=== PATIENT | male | born 1940 | race Caucasian/White ===

== ENCOUNTER 2018-04-03 08:17 | Inpatient (IN) | payer MEDICARE, BC ==
[2018-04-03] MEDS ORDERED: Ondansetron ODT 4 MG TAB ONE (08:45)
[2018-04-03] MEDS ORDERED: Piperacillin/Tazobactam 4.5 GM in Sodium Chloride 0.9% 100 ML IVPB SCH (09:00)
[2018-04-03 09:15] LABS: #Lymphocytes 0.2 thou/uL (1.20-3.40); #Monocytes 0.1 thou/uL (0.11-0.59); #Neutrophils 5.6 thou/uL (1.40-6.50); %Basophils 0.8 % (0.0-1.0); %Eosinophils 0.6 % (0.0-10.0); %Lymphocytes 3.5 % (21.0-51.0); %Monocytes 2.3 % (0.0-10.0); %Neutrophils 92.8 % (42.0-75.0); Hemoglobin 16.1 g/dL (14.0-18.0); Mean Corpuscular HGB CONC 33.6 g/dL (32.0-36.0); Mean Corpuscular Hemoglobin 32.2 pg (27.0-31.0); Mean Corpuscular Volume 95.8 fl (80.0-94.0); Mean Platelet Volume 6.6 fL (7.4-10.4); Platelet Count 214 thou/uL (130-400); RBC Distribution Width 12.3 % (11.5-14.5); Red Blood Cell (RBC) Count 4.99 mill/uL (4.70-6.10)
--- NOTE | 2018-04-03 09:17 | RAD ---
PORTABLE CHEST ONE VIEW: Date: 04-03-18 Time: 8:40 a.m. History: Fever, hypoxia. FINDINGS/IMPRESSION: Comparison is made with exam of 04-26-17. Changes of median sternotomy are again seen. The heart size is normal. Prominent interstitial marking s are seen in the lower lung aceves which may be due to worsening of chronic disease or superimposed acute process. No pneumothoraces or pleural effusions are seen. POS: OFF
[2018-04-03 09:39] LABS: ALT (SGPT) 15 U/L (8-55); AST (SGOT) 18 U/L (5-34); Albumin 4.2 g/dL (3.4-4.8); Alkaline Phosphatase 77 U/L (40-150); Anion Gap 14 mmol/L (10-20); BUN (Urea Nitrogen) 15 mg/dL (8.4-25.7); Bilirubin, Total 1.8 mg/dL (0.2-1.2); CK (CPK) 75 U/L (30-200); Calc. Creatinine Clearance 0 mL/min (70-130); Calcium 9.4 mg/dL (7.8-10.44); Carbon Dioxide 25 mmol/L (23-31); Chloride 106 mmol/L (98-107); Estimated GFR-MDRD 70; Globulin 2.6 g/dL (2.4-3.5); Glucose 124 mg/dL (83-110); Lipase 26 U/L (8-78); Magnesium 2.1 mg/dL (1.6-2.6); Potassium 3.3 mmol/L (3.5-5.1); Protein, Total 6.8 g/dL (5.8-8.1); Sodium 142 mmol/L (136-145)
[2018-04-03 09:43] LABS: Troponin I Less than 0.010 ng/mL (< 0.028)
[2018-04-03 10:19] LABS: Bilirubin Negative (Negative); Blood, Urine Small (Negative); Clarity CLEAR (Clear); Glucose, Urine (Dipstick) Negative (Negative); Leukocyte Negative (Negative); Nitrite Negative (Negative); Protein, Urine (Dipstick) 100 mg/dL (Neg-Trace); Specific Gravity, Urine 1.017 (1.002-1.036); Urobilinogen 0.2 mg/dL (0.2-1.0)
[2018-04-03 10:21] LABS: Bacteria/HPF None Seen HPF (None Seen); Hyaline Casts/LPF 0-3 HYALINE CAST LPF (0-3 Hyaline); Pathc Cast-AUWi Flag 0.14 (0-2.49); Squamous Epithelial 0-3 HPF (0-3); WBC/HPF 0-3 HPF (0-3)
[2018-04-03 10:38] LABS: Renal Epithelial 0-3 HPF (0-3); Transitional Epithelial 0-3 HPF (0-3)
--- NOTE | 2018-04-03 11:53 | CT ---
CT ABDOMEN AND PELVIS WITH CONTRAST: HISTORY: Abdominal pain with fever and vomiting. COMPARISON: 10/09/2013 TECHNIQUE: Multiple contiguous axial images were obtained in a CT of the abdomen and pelvis with contrast. Mendel nal reformats were performed. FINDINGS: There are hypodensities in the right kidney, measuring up to 3.2 cm in size, which represent cysts. The gallbladder has been removed. There is air in the central biliary tree, which may be secondary t o prior sphincterotomy at the ampulla of Vater. There appears to be a duodenal diverticulum, measuri ng 3 cm in size. No focal liver lesions are seen. The left kidney, adrenal glands, spleen, and pancreas are unremarka ble. No free air, free fluid, or stranding changes are seen in the abdomen or pelvis. The large and small bowel are unremarkable. The appendix is normal. No abdominal or pelvic lymphade nopathy is seen. Atherosclerotic calcifications are seen in the aorta. Degenerative changes are seen in the spine. Atelectasis is seen in the lung bases. There are also m ultifocal air space opacities in the lung bases, which could represent infiltrates. The abdominal wa ll soft tissues are unremarkable. IMPRESSION: 1. No evidence of acute intraabdominal/pelvic abnormality. 2. Duodenal diverticulum. 3. Right renal cyst. 4. Multifocal infiltrates in the lungs. POS: [facility]
[2018-04-03] MEDS ORDERED: Iopamidol 370 76% 100 ML VIAL ONE (12:10)
[2018-04-03] MEDS ORDERED: Vancomycin HCl 1.25 GM in Sodium Chloride 0.9% 250 ML 250 ML IVPB SCH (12:15)
[2018-04-03 13:26] LABS: Lactic Acid 1.3 mmol/L (0.5-2.2)
[2018-04-03] MEDS ORDERED: Ramipril 5 MG CAP PO PRN (14:28)
[2018-04-03] MEDS ORDERED: predniSONE 1 MG TAB PO SCH (17:00)
--- NOTE | 2018-04-03 17:57 | HP ---
DATE OF ADMISSION: 04/03/2018 CHIEF COMPLAINT: Shortness of breath and cough. HISTORY OF PRESENT ILLNESS: The patient is a 77-year-old white male, who presented to the ER from the [facility] with shortness of breath and fever of 102. The patient initially came with abdominal pain with se lukasz vomiting, so he had a CT of the abdomen, which was unremarkable in the ER, but had elevated lact ic acid of 2.5 most likely from dehydration or possible sepsis. Chest x-ray was ordered. The patien t had evidence of right lung pneumonia. He was mildly hypoxic on 2 liters of nasal cannula, but his orientation was good. The patient has a poor hearing in both ears and history of conduction deafness . The patient denied having any sick contacts, but for the past few days he has been having some hunter al allergies and was on Flonase. The patient denied having any chest pain. Denied having any headac he or dizziness. He lives with his , otherwise. He has a known history of coronary artery disea se with a CABG many years ago and with stent in 2016. The patient has known history of type 2 diabet es mellitus on glipizide. PAST MEDICAL HISTORY: 1. Hypertension. 2. Myocardial infarction. 3. Severe coronary artery disease with CABG x5 and stent x1. 4. Severe hearing loss. PAST SURGICAL HISTORY: Significant for: 1. CABG. 2. Stents in 2016. ALLERGIES: No known drug allergies. SOCIAL HISTORY: The patient is a nonsmoker, no history of alcohol, no history of illicit drug use. FAMILY HISTORY: No significant family history of coronary artery disease. HOME MEDICATIONS: 1. Aspirin 81 mg daily. 2. Calcium. 3. Plavix 75 mg daily. 4. Ezetimibe 10 mg p.o. daily. 5. Finasteride. 6. Fish oil. 7. Magnesium oxide. 8. Omeprazole. 9. Polyethylene glycol 17 grams p.o. daily. 10. Prednisolone 1 gram p.o. in the morning, 2 grams p.o. in the evening. 11. Ramipril 5 mg p.o. daily. REVIEW OF SYSTEMS: All 12 systems are reviewed with the patient thoroughly and found to be negative at this time except the ones described in the HPI. Constitutional: Weight loss or gain, sense of well-being, ability to conduct usual activities, exerc ise tolerance. Skin/Breast: Rash, itching, changes in hair growth or loss, nail changes, breast lumps, tenderness, swelling, nipple discharge. Eyes: Vision, double vision, tearing, blind spots, pain. ENT/Mouth: Headaches (location, time of onset, duration, precipitating factors), vertigo, lightheade dness, injury. Vision, double vision, tearing, blind spots, pain, nose bleeding, colds, obstruction, discharge, dental difficulties, gingival bleeding, dentures, neck stiffness, pain, tenderness, johnathon s in thyroid or other areas. Cardiovascular: Precordial pain, substernal distress, palpitations, syncope, dyspnea on exertion, or thopnea, nocturnal paroxysmal dyspnea, edema, cyanosis, hypertension, heart murmurs, varicosities, ph lebitis, claudication. Respiratory: Pain, shortness of breath, wheezing, stridor, cough, hemoptysis, fever or night sweats. Gastrointestinal: Poor appetite, dysphagia, indigestion, abdominal pain, heartburn, eructation, naus ea, vomiting, hematemesis, jaundice, constipation, or diarrhea, abnormal stools (florentino-colored, tarry, bloody, greasy, foul smelling), flatulence, hemorrhoids, recent changes in bowel habits. Genitourinary: Urgency, frequency, dysuria, nocturia, hematuria, polyuria, oliguria, unusual (or rachid nge in) color of urine, stones, hesitancy, change in size of stream, dribbling, acute retention or in continence, libido, potency. Musculoskeletal: Pain, swelling, redness or heat of muscles or joints, limitation, of motion, muscul ar weakness, atrophy, cramps. Neurologic/Psychiatric: Convulsions, paralyses, tremor, incoordination, paresthesias, difficulties w ith memory of speech, sensory or motor disturbances, or muscular coordination (ataxia, tremor), emoti onal problems, anxiety, depression, previous psychiatric care, unusual perceptions, hallucinations. Allergy/Immunologic: Skin rash, anemia, bleeding tendency, polydipsia, polyuria, intolerance to heat or cold. PHYSICAL EXAMINATION: VITAL SIGNS: Blood pressure was 133/80, heart rate is 88, respiratory rate is 18, saturation is 94% on 2 liters. GENERAL: The patient is seen lying in the bed supine, does not appear to be in acute distress. He i s alert and oriented. HEENT: Atraumatic, normocephalic, PERRLA. Extraocular movements were intact. Oral mucosa is pink a nd moist. Has poor hearing in both ears. NECK: No thyromegaly. No lymphadenopathy was noted. LUNGS: Bilateral air entry was equal. Mild wheezing was noted bilaterally. No crackles were heard. No signs of any acute respiratory distress was noted. CARDIOVASCULAR: S1, S2 normal. No murmurs, rubs or gallops. ABDOMEN: Nondistended, nontender, no guarding, no rebound tenderness. Bowel sounds were normal. MUSCULOSKELETAL: No calf tenderness. No pedal edema. No joint tenderness, no joint swelling. SKIN: No cyanosis, no erythema, no rash, no pallor. CENTRAL NERVOUS SYSTEM: Cranial nerve examination II-XII intact. No focal deficits were noted. PSYCHIATRIC: No suicidal ideation, no signs of tom. No signs of depression was noted. LABORATORY DATA: WBC is 6.9, hemoglobin is 16.1, hematocrit is 47.1. Sodium 142, potassium 3.3, chl oride 106, bicarbonate 25, creatinine 1.04. Blood sugar is 125. Lactic acid 2.5, repeat lactic acid 1.3. BNP 151. IMAGING: Chest x-ray was done showing evidence of interstitial markings in the lower lung aceves, mo re in the right than the left. Chest x-ray report has been reviewed and also chest x-ray has been re viewed by me. ASSESSMENT: 1. Acute hypoxic respiratory failure. 2. Acute right lung pneumonia. 3. Coronary artery disease, status post stents. 4. History of coronary artery bypass graft. 5. History of hypertension. 6. History of hyperlipidemia. 7. Moderate dehydration. PLAN: Plan is to closely monitor this patient. Continue the patient with nasal cannula oxygen at th is time and continue with nebulizer treatments as needed. We will start the patient on IV antibiotic s with cefepime and levofloxacin to cover Pseudomonas and any healthcare associated infections. The patient due to multiple comorbidities, need to be closely monitored. The patient has history of coronary artery disease. The patient had a recent stent a year ago. We w ill continue the patient on Plavix and aspirin and also on the beta-romi. The patient has history of hypertension. We will restart the patient's home medications. Blood pres sures are well controlled currently. The patient has moderate dehydration, likely from pneumonia. We will start the patient on normal tera ine at 75 an hour for improving hydration. DVT prophylaxis. Lovenox 40 mg subcutaneously daily. I spent 75 minutes with this patient.
[2018-04-03 19:14] VITALS: BMI 21.2
[2018-04-03] MEDS ORDERED: HYDROcodone/Acetaminophen 5/325 mg Tablet PO PRN (19:37)
[2018-04-03] MEDS: Acetaminophen 325 MG TAB PO PRN (20:45)
[2018-04-03] MEDS ORDERED: Fluticasone Propionate Nasal Spray 16 gm Bottle NASAL SCH (21:00)
[2018-04-03] MEDS: Sodium Chloride 0.9% 1,000 ML IV SCH (21:55)
[2018-04-03] MEDS: Docusate 100 MG CAP PO SCH (21:56)
[2018-04-03] MEDS: Cefepime 2 GM in Sodium Chloride 0.9% 100 ML IVPB SCH (21:56)
[2018-04-04] MEDS: Acetaminophen 325 MG TAB PO PRN ×2 (04:13→20:49)
[2018-04-04 06:07] LABS: Anion Gap 10 mmol/L (10-20); BUN (Urea Nitrogen) 15 mg/dL (8.4-25.7); Calc. Creatinine Clearance 79 mL/min (70-130); Calcium 8.1 mg/dL (7.8-10.44); Carbon Dioxide 22 mmol/L (23-31); Chloride 111 mmol/L (98-107); Estimated GFR-MDRD 90; Glucose 97 mg/dL (83-110); Potassium 3.4 mmol/L (3.5-5.1); Sodium 140 mmol/L (136-145)
[2018-04-04 06:54] LABS: Band 5 % (5-11); Hemoglobin 12.4 g/dL (14.0-18.0); Lymphocytes 20 % (21-51); MDiff Complete? YES; Mean Corpuscular HGB CONC 33.2 g/dL (32.0-36.0); Mean Corpuscular Hemoglobin 31.8 pg (27.0-31.0); Mean Corpuscular Volume 95.8 fl (80.0-94.0); Mean Platelet Volume 6.5 fL (7.4-10.4); Monocytes 3 % (0-10); Neutrophil 70 % (42-75); PLT Morphology Comment Appears Adequate; Platelet Count 162 thou/uL (130-400); RBC Distribution Width 12.2 % (11.5-14.5); Reactive Lymphocytes 2 % (0-10); Red Blood Cell (RBC) Count 3.92 mill/uL (4.70-6.10); White Blood Cell (WBC) Count 5.7 thou/uL (4.8-10.8)
[2018-04-04] MEDS ORDERED: predniSONE 1 MG TAB PO SCH (08:00)
[2018-04-04] MEDS ORDERED: Fish Oil 1,000 MG CAP PO SCH (09:00)
[2018-04-04] MEDS ORDERED: Polyethylene Glycol 3350 17 GM Packet PO SCH (09:00)
[2018-04-04] MEDS ORDERED: Ezetimibe 10 MG TAB PO SCH (09:00)
[2018-04-04] MEDS ORDERED: Multivitamin W/ Minerals 1 TAB PO SCH (09:00)
[2018-04-04] MEDS ORDERED: Finasteride 5 MG TAB PO SCH (09:00)
[2018-04-04] MEDS ORDERED: Bupropion 150 MG XL TAB PO SCH (09:00)
[2018-04-04] MEDS ORDERED: Magnesium Oxide 400 MG TAB PO SCH (09:00)
[2018-04-04] MEDS ORDERED: Clopidogrel Bisulfate 75 MG TAB PO SCH (09:00)
[2018-04-04] MEDS ORDERED: Calcium Polycarbophil 625 MG TAB PO SCH (09:00)
[2018-04-04] MEDS: Enoxaparin Sodium 40 MG/0.4 ML SYRINGE SC SCH (09:54)
[2018-04-04] MEDS: Docusate 100 MG CAP PO SCH ×2 (09:54→20:49)
[2018-04-04] MEDS: Cefepime 2 GM in Sodium Chloride 0.9% 100 ML IVPB SCH ×2 (09:55→20:49)
[2018-04-04] MEDS: Sodium Chloride 0.9% 1,000 ML IV SCH (12:39)
--- NOTE | 2018-04-04 12:45 | PQF ---
CLINICAL DOCUMENTATION IMPROVEMENT CLARIFICATION FORM: ICD-10 Updated PLEASE DO AN ADDENDUM TO THE PROGRESS NOTE WITH ANY DOCUMENTATION UPDATES OR ADDITIONS AND CARRY THROUGH TO DC SUMMARY. THANK YOU. DATE: 04/04/18 ATTN: DR. JACOB Please exercise your independent, professional judgment in responding to the clarification form. Clinical indicators are provided on the bottom of this form for your review Please check appropriate box(s) to clarify if the following diagnosis has been ruled in or ruled out: SEPSIS [ x ] Ruled in diagnosis [ x ] Continue to treat [ ] Resolved [ ] Ruled out diagnosis [ ] Cannot rule out diagnosis [ ] Other diagnosis [ ] Unable to determine In addition, please specify: Present on Admission (POA): [x ] Yes [ ] No [ ] Unable to determine For continuity of documentation, please document condition throughout progress notes and discharge summary. Thank You. CLINICAL INDICATORS - SIGNS / SYMPTOMS / LABS H&P 04/03: "...ELEVATED LACTIC ACID OF 2.5 MOST LIKELY FROM DEHYDRATION OR POSSIBLE SEPSIS." PULSE 106 RISKS: PNEUMONIA TREATMENT: IV FLUIDS (ER) IV VANCOMYCIN (ER) IV ZOSYN (ER) IV MAXIPIME (04/03-PRESENT) IV LEVAQUIN BLOOD AND URINE CULTURES CARDIAC MONITORING (This form is maintained as a part of the permanent medical record) 2014 [employer]. All Rights Reserved STEWART [email or web address] Office: [phone] [place]
--- NOTE | 2018-04-04 15:52 | PDOC.PN ---
- Subjective Encounter Start Date: 04/04/18 Encounter Start Time: 11:00 Patient is seen today, alert and oriented. He continuously have nausea and abdominal discomfort. He has increased Sputum production. - Objective Resuscitation Status: Resuscitation Status FULL:Full Resuscitation MAR Reviewed: Yes Vital Signs & Weight: Vital Signs (12 hours) Temp Pulse Pulse Pulse Resp BP BP 04/04/18 12:00 97.9 F 75 17 04/04/18 09:00 74 69 123/64 113/62 04/04/18 08:00 97.9 F 65 16 04/04/18 07:41 97.9 F 65 16 04/04/18 03:58 99.1 F 79 16 BP Pulse Ox Pulse Ox 04/04/18 12:00 126/66 95 04/04/18 09:00 93 L 04/04/18 08:00 04/04/18 07:41 114/68 100 04/04/18 03:58 103/56 L 95 Weight Admit Weight 161 lb Weight 161 lb I&O: 04/03/18 04/04/18 04/05/18 06:59 06:59 06:59 Intake Total 1124 Balance 1124 Result Diagrams: 04/04/18 05:45 04/04/18 05:45 Additional Labs: Accuchecks 04/04/18 04/04/18 12:21 06:46 POC Glucose 108 96 Radiology Reviewed by me: Yes Phys Exam - Physical Examination HEENT: PERRLA, moist MMs Neck: no nodes, no JVD Respiratory: no wheezing, no rales Cardiovascular: RRR, no significant murmur Gastrointestinal: soft, non-tender Musculoskeletal: no edema, pulses present Neurological: non-focal, normal sensation Lymphatic: no nodes Dx/Plan (1) Pneumonia involving right lung Code(s): J18.9 - PNEUMONIA, UNSPECIFIED ORGANISM Status: Acute Comment: Will continue on broad spectrum today and monitor with Duo nebs and Alb nebs. Will get Sputum cultures. (2) Acute respiratory failure with hypoxia Code(s): J96.01 - ACUTE RESPIRATORY FAILURE WITH HYPOXIA Status: Acute Comment: Improving, will continue to wean him off oxygem. (3) Dementia Code(s): F03.90 - UNSPECIFIED DEMENTIA WITHOUT BEHAVIORAL DISTURBANCE Status: Acute Comment: PT is on Arcept and Donepzil, both same medications , which could be contributing to his dizzy spells and nasusea and urinary problems. Will hold of on Aricept. (4) CAD (coronary artery disease) Code(s): I25.10 - ATHSCL HEART DISEASE OF [place] CORONARY ARTERY W/O ANG PCTRS Status: Acute Comment: Continue on Aspirin and BB. (5) CAD (coronary artery disease) of artery bypass graft Code(s): I25.810 - ATHEROSCLEROSIS OF CABG W/O ANGINA PECTORIS Status: Acute (6) HTN (hypertension) Code(s): I10 - ESSENTIAL (PRIMARY) HYPERTENSION Status: Acute Comment: Contineu is Home MEs, Looks to be well controlled now. - Plan cont current plan of care, plan discussed w/ family, continue antibiotics, PT/OT , marriage and family social worker, respiratory therapy, incentive spirometry, out of bed/ ambulate, DVT proph w/lovenox * . Review of Systems - Review of Systems Constitutional: weakness, malaise Eyes: negative: Pain, Vision Change, Conjunctivae Inflammation, Eyelid Inflammation, Redness, Other Respiratory: Cough, Shortness of Breath, Sputum, Wheezing. negative: Dry, Hemoptysis, SOB with Excertion, Pleuritic Pain Cardiovascular: negative: chest pain, palpitations, orthopnea, paroxysmal nocturnal dyspnea, edema, light headedness, other Gastrointestinal: Nausea, Vomiting, Abdominal Pain - Medications/Allergies Allergies/Adverse Reactions: Allergies Allergy/AdvReac Type Severity Reaction Status Date / Time [id number] Reductase Allergy Intermediate Verified 04/03/18 22:23 Inhibitor baicalin [From Limbrel] Allergy Verified 04/03/18 22:23 catechin [From Limbrel] Allergy Verified 04/03/18 22:23 zolpidem tartrate AdvReac Verified 04/03/18 22:23 [From Ambien] Medications: Current Medications Acetaminophen (Tylenol) 650 mg PO Q4H PRN PRN Reason: Headache/Fever or Pain Last Admin: 04/04/18 04:13 Dose: 650 mg Hydrocodone Bitart/Acetaminophen ([place] 5/325) 1 tab PO Q4H PRN PRN Reason: Moderate Pain (4-6) Docusate Sodium (Colace) 100 mg PO BID [facility] Last Admin: 04/04/18 09:54 Dose: 100 mg Enoxaparin Sodium (Lovenox) 40 mg SC 0900 [facility] Last Admin: 04/04/18 09:54 Dose: 40 mg Cefepime HCl 2 gm/ Sodium (Chloride) 100 mls @ 200 mls/hr IVPB Q12HR [facility] Last Admin: 04/04/18 09:55 Dose: 100 mls Levofloxacin 750 mg/ Device 150 mls @ 100 mls/hr IVPB 2100 [facility] Last Admin: 04/03/18 21:57 Dose: 150 mls Sodium Chloride (Normal Saline 0.9%) 1,000 mls @ 75 mls/hr IV .[id number] [facility] Last Admin: 04/04/18 12:39 Dose: 1,000 mls
[2018-04-04] MEDS ORDERED: Albuterol Sulfate 2.5 mg/3 ml Neb NEB PRN (15:56)
[2018-04-04] MEDS: guaiFENesin ER 600 MG TAB PO SCH (20:48)
[2018-04-04] MEDS: ALPRAZolam 0.5 MG TAB PO SCH (20:48)
[2018-04-04] MEDS: Fludrocortisone Acetate 0.1 MG TAB PO SCH (20:49)
[2018-04-05] MEDS: Sodium Chloride 0.9% 1,000 ML IV SCH ×2 (03:46→17:40)
[2018-04-05] MEDS: Docusate 100 MG CAP PO SCH ×2 (08:32→21:35)
[2018-04-05] MEDS: guaiFENesin ER 600 MG TAB PO SCH ×2 (08:32→21:34)
[2018-04-05] MEDS: Fluticasone Propionate Nasal Spray 16 gm Bottle NASAL SCH (08:33)
[2018-04-05] MEDS: Tamsulosin HCl 0.4 MG CAP PO SCH (08:33)
[2018-04-05] MEDS: Enoxaparin Sodium 40 MG/0.4 ML SYRINGE SC SCH (08:34)
[2018-04-05] MEDS: Cefepime 2 GM in Sodium Chloride 0.9% 100 ML IVPB SCH (08:35)
[2018-04-05] MEDS ORDERED: Fluticasone Propionate Nasal Spray 16 gm Bottle NASAL SCH (09:00)
--- NOTE | 2018-04-05 13:01 | PDOC.PN ---
- Subjective Encounter Start Date: 04/05/18 Encounter Start Time: 10:00 Sage is seen today, alert and oriented, he just came out of Shower, he still nauseas and has been having Post nasal drip. Cough is better, he is off of oxygen. - Objective Resuscitation Status: Resuscitation Status FULL:Full Resuscitation MAR Reviewed: Yes Vital Signs & Weight: Vital Signs (12 hours) Temp Pulse Resp BP Pulse Ox 04/05/18 12:25 74 12 04/05/18 12:00 97.4 F L 74 16 166/78 H 97 04/05/18 08:43 72 12 04/05/18 08:00 97.8 F 72 12 157/75 H 94 L 04/05/18 03:43 98.7 F 79 19 142/65 H 97 04/05/18 01:43 74 14 95 Weight Admit Weight 161 lb Weight 162 lb 14.4 oz I&O: 04/04/18 04/05/18 04/06/18 06:59 06:59 06:59 Intake Total 1124 3300 Output Total 1730 Balance 1124 1570 Result Diagrams: 04/04/18 05:45 04/04/18 05:45 Additional Labs: Accuchecks 04/05/18 04/05/18 04/04/18 11:11 06:10 20:54 POC Glucose 105 102 101 04/04/18 16:39 POC Glucose 97 Radiology Reviewed by me: Yes Phys Exam - Physical Examination HEENT: PERRLA, moist MMs Neck: no nodes, no JVD Respiratory: no wheezing, no rales Cardiovascular: RRR, no significant murmur Gastrointestinal: soft, non-tender Musculoskeletal: no edema, pulses present Neurological: non-focal, normal sensation Lymphatic: no nodes Dx/Plan (1) Pneumonia involving right lung Code(s): J18.9 - PNEUMONIA, UNSPECIFIED ORGANISM Status: Acute Comment: Will d/c Cefepime today , continue Levofloxacin and monitor with Duo nebs and Alb nebs. Sputum culture growing gram Neg rods and gram positive cocci in chanins. (2) Acute respiratory failure with hypoxia Code(s): J96.01 - ACUTE RESPIRATORY FAILURE WITH HYPOXIA Status: Acute Comment: Improving, will continue to wean him off oxygem. (3) Dementia Code(s): F03.90 - UNSPECIFIED DEMENTIA WITHOUT BEHAVIORAL DISTURBANCE Status: Acute Comment: PT is on Arcept and Donepzil, both same medications , which could be contributing to his dizzy spells and nasusea and urinary problems. Will hold of on Aricept. (4) CAD (coronary artery disease) Code(s): I25.10 - ATHSCL HEART DISEASE OF [place] CORONARY ARTERY W/O ANG PCTRS Status: Acute Comment: Continue on Aspirin and BB. (5) CAD (coronary artery disease) of artery bypass graft Code(s): I25.810 - ATHEROSCLEROSIS OF CABG W/O ANGINA PECTORIS Status: Acute (6) HTN (hypertension) Code(s): I10 - ESSENTIAL (PRIMARY) HYPERTENSION Status: Acute Comment: Contineu is Home MEs, Looks to be well controlled now. - Plan cont current plan of care, plan discussed w/ family, continue antibiotics, PT/OT , transition social worker, respiratory therapy, incentive spirometry, out of bed/ ambulate, DVT proph w/lovenox * . Spent 35 Min on Discussing about Code status, and MPOA. Review of Systems - Review of Systems Eyes: negative: Pain, Vision Change, Conjunctivae Inflammation, Eyelid Inflammation, Redness, Other ENT: negative: Ear Pain, Ear Discharge, Nose Pain, Nose Discharge, Nose Congestion, Mouth Pain, Mouth Swelling, Throat Pain, Throat Swelling, Other Respiratory: Cough, Shortness of Breath, Sputum. negative: Dry, Hemoptysis, SOB with Excertion, Pleuritic Pain, Wheezing Musculoskeletal: negative: Neck Pain, Shoulder Pain, Arm Pain, Back Pain, Hand Pain, Leg Pain, Foot Pain, Other - Medications/Allergies Allergies/Adverse Reactions: Allergies Allergy/AdvReac Type Severity Reaction Status Date / Time [id number]-Vpk Reductase Allergy Intermediate Verified 04/03/18 22:23 Inhibitor baicalin [From Limbrel] Allergy Verified 04/03/18 22:23 catechin [From Limbrel] Allergy Verified 04/03/18 22:23 zolpidem tartrate AdvReac Verified 04/03/18 22:23 [From Ambien] Medications: Current Medications Acetaminophen (Tylenol) 650 mg PO Q4H PRN PRN Reason: Headache/Fever or Pain Last Admin: 04/04/18 20:49 Dose: 650 mg Hydrocodone Bitart/Acetaminophen ([place] 5/325) 1 tab PO Q4H PRN PRN Reason: Moderate Pain (4-6) Albuterol Sulfate (Ventolin) 2.5 mg NEB Q2H PRN PRN Reason: Wheezing Albuterol/Ipratropium (Duoneb) 3 ml NEB [id number] [facility] Last Admin: 04/05/18 12:25 Dose: 3 ml Alprazolam (Xanax) 0.5 mg PO HS [facility] Last Admin: 04/04/18 20:48 Dose: 0.5 mg Docusate Sodium (Colace) 100 mg PO BID [facility] Last Admin: 04/05/18 08:32 Dose: 100 mg Enoxaparin Sodium (Lovenox) 40 mg SC 0900 [facility] Last Admin: 04/05/18 08:34 Dose: 40 mg Fludrocortisone Acetate (Florinef) 0.1 mg PO HS [facility] Last Admin: 04/04/18 20:49 Dose: 0.1 mg Fluticasone Propionate (Flonase Nasal [place]) 0 gm NASAL DAILY [facility] Last Admin: 04/05/18 08:33 Dose: 2 spr Guaifenesin (Mucinex) 1,200 mg PO Q12HR [facility] Last Admin: 04/05/18 08:32 Dose: 1,200 mg Cefepime HCl 2 gm/ Sodium (Chloride) 100 mls @ 200 mls/hr IVPB Q12HR [facility] Last Admin: 04/05/18 08:35 Dose: 100 mls Levofloxacin 750 mg/ Device 150 mls @ 100 mls/hr IVPB 2100 [facility] Last Admin: 04/04/18 20:49 Dose: 150 mls Sodium Chloride (Normal Saline 0.9%) 1,000 mls @ 75 mls/hr IV .[id number] [facility] Last Admin: 04/05/18 03:46 Dose: 1,000 mls Lisinopril (Zestril) 2.5 mg PO DAILY [facility] Sodium Chloride (Flush - Normal Saline) 10 ml IVF Q12HR [facility] Last Admin: 04/05/18 08:34 Dose: Not Given Tamsulosin HCl (Flomax) 0.4 mg PO DAILY [facility] Last Admin: 04/05/18 08:33 Dose: 0.4 mg
[2018-04-05] MEDS ORDERED: Carbamide Peroxide 6.5% Otic Drops 15 ml Bottle EA EAR PRN (18:04)
[2018-04-05] MEDS: Carbamide Peroxide 6.5% Otic Drops 15 ml Bottle EA EAR PRN (19:26)
[2018-04-05] MEDS: ALPRAZolam 0.5 MG TAB PO SCH (21:35)
[2018-04-05] MEDS: Fludrocortisone Acetate 0.1 MG TAB PO SCH (21:35)
[2018-04-06] MEDS: Sodium Chloride 0.9% 1,000 ML IV SCH ×3 (02:54→14:02)
[2018-04-06] MEDS ORDERED: Digoxin 0.125 MG TAB PO SCH (05:15)
[2018-04-06 05:42] LABS: #Eosinphils 0.1 thou/uL (0.0-0.7); #Lymphocytes 1.2 thou/uL (1.20-3.40); #Monocytes 0.4 thou/uL (0.11-0.59); #Neutrophils 2.6 thou/uL (1.40-6.50); %Basophils 0.3 % (0.0-1.0); %Eosinophils 2.8 % (0.0-10.0); %Lymphocytes 27.8 % (21.0-51.0); %Monocytes 9.1 % (0.0-10.0); Hemoglobin 12.8 g/dL (14.0-18.0); Mean Corpuscular HGB CONC 33.2 g/dL (32.0-36.0); Mean Corpuscular Hemoglobin 31.5 pg (27.0-31.0); Mean Corpuscular Volume 95.1 fl (80.0-94.0); Mean Platelet Volume 6.8 fL (7.4-10.4); Platelet Count 162 thou/uL (130-400); RBC Distribution Width 12.1 % (11.5-14.5); Red Blood Cell (RBC) Count 4.06 mill/uL (4.70-6.10); White Blood Cell (WBC) Count 4.3 thou/uL (4.8-10.8)
[2018-04-06] MEDS: guaiFENesin ER 600 MG TAB PO SCH ×2 (08:13→21:26)
[2018-04-06] MEDS: Docusate 100 MG CAP PO SCH ×2 (08:13→21:26)
[2018-04-06] MEDS: Lisinopril 2.5 MG TAB PO SCH (08:13)
[2018-04-06] MEDS: Enoxaparin Sodium 40 MG/0.4 ML SYRINGE SC SCH (08:14)
[2018-04-06] MEDS: Fluticasone Propionate Nasal Spray 16 gm Bottle NASAL SCH (08:14)
[2018-04-06] MEDS: Tamsulosin HCl 0.4 MG CAP PO SCH (08:14)
[2018-04-06] MEDS: Carbamide Peroxide 6.5% Otic Drops 15 ml Bottle EA EAR PRN (08:17)
[2018-04-06 08:19] LABS: Sodium 141 mmol/L (136-145)
[2018-04-06 08:20] LABS: Chloride 109 mmol/L (98-107); Potassium 2.4 mmol/L (3.5-5.1)
[2018-04-06 08:21] LABS: Anion Gap 14 mmol/L (10-20); BUN (Urea Nitrogen) 8 mg/dL (8.4-25.7); Calc. Creatinine Clearance 82 mL/min (70-130); Calcium 8.5 mg/dL (7.8-10.44); Carbon Dioxide 20 mmol/L (23-31); Estimated GFR-MDRD Greater than 90; Glucose 96 mg/dL (83-110)
[2018-04-06] MEDS: Potassium Chloride 20 MEQ TAB PO SCH ×2 (10:15→14:00)
--- NOTE | 2018-04-06 13:03 | RAD ---
PORTABLE CHEST: Date: 04/06/18 HISTORY: Shortness of breath. COMPARISON: 04/03/18. FINDINGS: Heart size within normal limits. Postop sternotomy changes are seen. Chronic lung changes are present without any definite acute process. Some of the interstitial change in the right base appears slight ly improved as compared to the prior exam. IMPRESSION: Chronic lung change. Suggestion of some improvement to the interstitial change in the right base. POS: [facility]
--- NOTE | 2018-04-06 14:00 | PDOC.PN ---
- Subjective Encounter Start Date: 04/06/18 Encounter Start Time: 11:00 Danielle is seen today, Drowsy and c/o Dryness of the mouth, his Potasium dropped significantly low, Pt sister at bedside. Pt is admitted with pneumonia, with improvement on right Lung pneumonia on repeat chest xray. - Objective Resuscitation Status: Resuscitation Status FULL:Full Resuscitation MAR Reviewed: Yes Vital Signs & Weight: Vital Signs (12 hours) Temp Pulse Resp BP BP Pulse Ox 04/06/18 12:07 85 20 112/65 93 L 04/06/18 11:08 82 12 04/06/18 08:10 98.9 F 99 18 93 L 04/06/18 08:00 98.9 F 99 18 113/64 92 L 04/06/18 07:41 98 12 04/06/18 05:58 140 H 04/06/18 04:00 98.5 F 89 18 143/72 H 92 L 04/06/18 03:50 94 L Weight Admit Weight 161 lb Weight 162 lb 14.4 oz I&O: 04/05/18 04/06/18 04/07/18 06:59 06:59 06:59 Intake Total 3300 Output Total 1730 Balance 1570 Result Diagrams: 04/06/18 05:26 04/06/18 05:26 Additional Labs: Accuchecks 04/05/18 16:39 POC Glucose 92 Radiology Reviewed by me: Yes Phys Exam - Physical Examination HEENT: PERRLA, moist MMs Neck: no nodes, no JVD Respiratory: no wheezing, no rales Cardiovascular: RRR, no significant murmur Gastrointestinal: soft, non-tender Musculoskeletal: no edema, pulses present Neurological: non-focal, normal sensation Lymphatic: no nodes Psychiatric: normal affect, A&O x 3 Dx/Plan (1) Pneumonia involving right lung Code(s): J18.9 - PNEUMONIA, UNSPECIFIED ORGANISM Status: Acute Comment: Will d/c Cefepime today , continue Levofloxacin and monitor with Duo nebs and Alb nebs. Sputum culture growing gram Neg rods and gram positive cocci in chanins. Repeat chest xray showed improvimenet in infiltrate. (2) Acute respiratory failure with hypoxia Code(s): J96.01 - ACUTE RESPIRATORY FAILURE WITH HYPOXIA Status: Resolved Comment: Improving, will continue to wean him off oxygem. (3) Dementia Code(s): F03.90 - UNSPECIFIED DEMENTIA WITHOUT BEHAVIORAL DISTURBANCE Status: Acute Comment: PT is on Arcept 10mg, pt c/o of nausea, Dizziness and Drymouth and loss of appetitie. Will hold off on Aricept. (4) CAD (coronary artery disease) Code(s): I25.10 - ATHSCL HEART DISEASE OF [place] CORONARY ARTERY W/O ANG PCTRS Status: Acute Comment: Continue on Aspirin and BB. (5) CAD (coronary artery disease) of artery bypass graft Code(s): I25.810 - ATHEROSCLEROSIS OF CABG W/O ANGINA PECTORIS Status: Acute (6) HTN (hypertension) Code(s): I10 - ESSENTIAL (PRIMARY) HYPERTENSION Status: Acute Comment: Contineu is Home MEs, Looks to be well controlled now. - Plan cont current plan of care, plan discussed w/ family, continue antibiotics, PT/OT , social professionals, respiratory therapy, incentive spirometry, out of bed/ ambulate, DVT proph w/lovenox * . Review of Systems - Review of Systems Constitutional: weakness, malaise Eyes: negative: Pain, Vision Change, Conjunctivae Inflammation, Eyelid Inflammation, Redness, Other Respiratory: negative: Cough, Dry, Shortness of Breath, Hemoptysis, SOB with Excertion, Pleuritic Pain, Sputum, Wheezing Cardiovascular: negative: chest pain, palpitations, orthopnea, paroxysmal nocturnal dyspnea, edema, light headedness, other Gastrointestinal: Nausea Musculoskeletal: negative: Neck Pain, Shoulder Pain, Arm Pain, Back Pain, Hand Pain, Leg Pain, Foot Pain, Other Neurological: Weakness - Medications/Allergies Allergies/Adverse Reactions: Allergies Allergy/AdvReac Type Severity Reaction Status Date / Time Gcfpeny-[id number]-Ojj Reductase Allergy Intermediate Verified 04/03/18 22:23 Inhibitor baicalin [From Limbrel] Allergy Verified 04/03/18 22:23 catechin [From Limbrel] Allergy Verified 04/03/18 22:23 zolpidem tartrate AdvReac Verified 04/03/18 22:23 [From Ambien] Medications: Current Medications Acetaminophen (Tylenol) 650 mg PO Q4H PRN PRN Reason: Headache/Fever or Pain Last Admin: 04/04/18 20:49 Dose: 650 mg Hydrocodone Bitart/Acetaminophen ([place] 5/325) 1 tab PO Q4H PRN PRN Reason: Moderate Pain (4-6) Albuterol Sulfate (Ventolin) 2.5 mg NEB Q2H PRN PRN Reason: Wheezing Albuterol/Ipratropium (Duoneb) 3 ml NEB [id number] [facility] Last Admin: 04/06/18 11:08 Dose: 3 ml Alprazolam (Xanax) 0.5 mg PO HS [facility] Last Admin: 04/05/18 21:35 Dose: 0.5 mg Carbamide Perox/Anhydrous Glycerin (Debrox 6.5% Otic) 5 drop EA EAR BID PRN PRN Reason: [employer] Last Admin: 04/06/18 08:17 Dose: 5 drop Docusate Sodium (Colace) 100 mg PO BID [facility] Last Admin: 04/06/18 08:13 Dose: 100 mg Enoxaparin Sodium (Lovenox) 40 mg SC 0900 [facility] Last Admin: 04/06/18 08:14 Dose: 40 mg Fludrocortisone Acetate (Florinef) 0.1 mg PO [facility] Last Admin: 04/05/18 21:35 Dose: 0.1 mg Fluticasone Propionate (Flonase Nasal [place]) 0 gm NASAL DAILY [facility] Last Admin: 04/06/18 08:14 Dose: 2 spr Guaifenesin (Mucinex) 1,200 mg PO Q12HR [facility] Last Admin: 04/06/18 08:13 Dose: 1,200 mg Sodium Chloride (Normal Saline 0.9%) 1,000 mls @ 75 mls/hr IV .[id number] [facility] Last Admin: 04/06/18 10:18 Dose: 1,000 mls Levofloxacin (Levaquin) 750 mg PO 2100 [facility] Lisinopril (Zestril) 2.5 mg PO DAILY [facility] Last Admin: 04/06/18 08:13 Dose: 2.5 mg Metoclopramide HCl (Reglan) 10 mg PO [facility] Sodium Chloride (Flush - Normal Saline) 10 ml IVF Q12HR [facility] Last Admin: 04/06/18 08:14 Dose: Not Given Sucralfate (Carafate) 1 gm PO ACHS [facility] Tamsulosin HCl (Flomax) 0.4 mg PO DAILY [facility] Last Admin: 04/06/18 08:14 Dose: 0.4 mg
[2018-04-06] MEDS: Sucralfate 1 GM/10 ML UDCUP PO SCH ×2 (18:16→22:29)
[2018-04-06] MEDS: Metoclopramide 10 MG/10 ML UDCUP PO SCH ×2 (18:16→21:25)
[2018-04-06] MEDS: Fludrocortisone Acetate 0.1 MG TAB PO SCH (21:26)
[2018-04-06] MEDS: ALPRAZolam 0.5 MG TAB PO SCH (21:27)
[2018-04-07] MEDS: Sodium Chloride 0.9% 1,000 ML IV SCH (01:18)
[2018-04-07 05:35] LABS: #Eosinphils 0.3 thou/uL (0.0-0.7); #Lymphocytes 1.3 thou/uL (1.20-3.40); #Monocytes 0.4 thou/uL (0.11-0.59); #Neutrophils 2.4 thou/uL (1.40-6.50); %Eosinophils 6.7 % (0.0-10.0); %Lymphocytes 28.7 % (21.0-51.0); %Monocytes 9.4 % (0.0-10.0); %Neutrophils 54.2 % (42.0-75.0); Hemoglobin 12.6 g/dL (14.0-18.0); Mean Corpuscular HGB CONC 33.3 g/dL (32.0-36.0); Mean Corpuscular Hemoglobin 31.9 pg (27.0-31.0); Mean Corpuscular Volume 95.6 fl (80.0-94.0); Mean Platelet Volume 6.8 fL (7.4-10.4); Platelet Count 188 thou/uL (130-400); RBC Distribution Width 12.1 % (11.5-14.5); Red Blood Cell (RBC) Count 3.94 mill/uL (4.70-6.10); White Blood Cell (WBC) Count 4.4 thou/uL (4.8-10.8)
[2018-04-07 05:57] LABS: Anion Gap 10 mmol/L (10-20); BUN (Urea Nitrogen) 9 mg/dL (8.4-25.7); Calc. Creatinine Clearance 91 mL/min (70-130); Calcium 8.6 mg/dL (7.8-10.44); Carbon Dioxide 21 mmol/L (23-31); Chloride 114 mmol/L (98-107); Estimated GFR-MDRD Greater than 90; Glucose 101 mg/dL (83-110); Potassium 3.1 mmol/L (3.5-5.1); Sodium 142 mmol/L (136-145)
[2018-04-07] MEDS ORDERED: Potassium Chloride 20 MEQ TAB PO SCH (08:30)
[2018-04-07] MEDS: Metoclopramide 10 MG/10 ML UDCUP PO SCH ×4 (08:51→21:22)
[2018-04-07] MEDS: Tamsulosin HCl 0.4 MG CAP PO SCH (08:52)
[2018-04-07] MEDS: guaiFENesin ER 600 MG TAB PO SCH ×2 (08:52→21:22)
[2018-04-07] MEDS: Fluticasone Propionate Nasal Spray 16 gm Bottle NASAL SCH (08:52)
[2018-04-07] MEDS: Sucralfate 1 GM/10 ML UDCUP PO SCH ×4 (08:52→21:22)
[2018-04-07] MEDS: Lisinopril 2.5 MG TAB PO SCH (08:53)
[2018-04-07] MEDS: Enoxaparin Sodium 40 MG/0.4 ML SYRINGE SC SCH (08:53)
[2018-04-07] MEDS: Docusate 100 MG CAP PO SCH ×2 (08:53→21:21)
[2018-04-07] MEDS: Acetaminophen 325 MG TAB PO PRN ×2 (13:19→21:23)
[2018-04-07] MEDS: ALPRAZolam 0.5 MG TAB PO SCH (21:21)
[2018-04-07] MEDS: Fludrocortisone Acetate 0.1 MG TAB PO SCH (21:22)
[2018-04-08 05:20] LABS: #Basophils 0.1 thou/uL (0.0-0.2); #Eosinphils 0.3 thou/uL (0.0-0.7); #Lymphocytes 1.2 thou/uL (1.20-3.40); #Monocytes 0.4 thou/uL (0.11-0.59); #Neutrophils 2.4 thou/uL (1.40-6.50); %Basophils 1.2 % (0.0-1.0); %Eosinophils 6.2 % (0.0-10.0); %Lymphocytes 27.8 % (21.0-51.0); %Monocytes 9.8 % (0.0-10.0); Hemoglobin 12.3 g/dL (14.0-18.0); Mean Corpuscular HGB CONC 32.9 g/dL (32.0-36.0); Mean Corpuscular Hemoglobin 31.4 pg (27.0-31.0); Mean Corpuscular Volume 95.2 fl (80.0-94.0); Mean Platelet Volume 6.8 fL (7.4-10.4); Platelet Count 198 thou/uL (130-400); Red Blood Cell (RBC) Count 3.91 mill/uL (4.70-6.10); White Blood Cell (WBC) Count 4.3 thou/uL (4.8-10.8)
[2018-04-08] MEDS: Sucralfate 1 GM/10 ML UDCUP PO SCH ×2 (08:58→12:24)
[2018-04-08] MEDS: Metoclopramide 10 MG/10 ML UDCUP PO SCH ×2 (08:58→12:24)
[2018-04-08] MEDS: Enoxaparin Sodium 40 MG/0.4 ML SYRINGE SC SCH (08:59)
[2018-04-08] MEDS: Docusate 100 MG CAP PO SCH (08:59)
[2018-04-08] MEDS: Lisinopril 2.5 MG TAB PO SCH (09:00)
[2018-04-08] MEDS ORDERED: Polyethylene Glycol 3350 17 GM Packet PO SCH (09:00)
[2018-04-08] MEDS: guaiFENesin ER 600 MG TAB PO SCH (09:01)
[2018-04-08] MEDS: Tamsulosin HCl 0.4 MG CAP PO SCH (09:02)
[2018-04-08 09:08] VITALS: TEMP 98.1
[2018-04-08 12:09] VITALS: BP 139/78
[2018-04-08] MEDS: Fluticasone Propionate Nasal Spray 16 gm Bottle NASAL SCH (12:24)
== END 2018-04-08 16:10 | disposition home health service (06) | DRG 871 ==
LOC: ERS 08:17 → 2NO 14:22 → ERS 18:21
PROVIDERS: ADMIT Family Medicine; ATTEND Family Medicine
DX: A41.9 Sepsis, unspecified organism (principal); J96.01 Acute respiratory failure with hypoxia; J18.9 Pneumonia, unspecified organism; I25.810 Atherosclerosis of coronary artery bypass graft(s) without angina pectoris; F03.90 Unspecified dementia, unspecified severity, without behavioral disturbance, psychotic disturbance, mood disturbance, and anxiety; I10 Essential (primary) hypertension; I25.2 Old myocardial infarction; Z95.5 Presence of coronary angioplasty implant and graft; Z95.1 Presence of aortocoronary bypass graft; Z79.82 Long term (current) use of aspirin; E78.5 Hyperlipidemia, unspecified; E86.0 Dehydration; E11.9 Type 2 diabetes mellitus without complications; Z79.84 Long term (current) use of oral hypoglycemic drugs; H91.93 Unspecified hearing loss, bilateral
CPT/HCPCS: 36415; 36416; 51701; 71045; 74177; 80048; 80053; 81003; 81015; 82550; 82553; 83605; 83690; 83735; 83880; 84484; 85025; 87040; 87070; 87086; 87205; 93005; 93010; 94640; 94760; 96361; 96365; 96366; 96367; A4216; G8978-GP-CJ; G8979-GP-CJ; G8980-GP-CJ; G8987-GO-CJ; G8988-GO-CH; J0692; J1650; J1956; J2543; J3370; J7050; J7620; Q0162

== ENCOUNTER 2018-09-30 09:57 | Outpatient (CLI) | payer MEDICARE, BC ==
[2018-09-30 11:08] LABS: #Basophils 0.1 thou/uL (0.0-0.2); #Eosinphils 0.2 thou/uL (0.0-0.7); #Lymphocytes 1.2 thou/uL (1.20-3.40); #Monocytes 0.6 thou/uL (0.11-0.59); #Neutrophils 3.9 thou/uL (1.40-6.50); %Basophils 0.9 % (0.0-1.0); %Eosinophils 2.8 % (0.0-10.0); %Lymphocytes 20.3 % (21.0-51.0); %Monocytes 9.6 % (0.0-10.0); %Neutrophils 66.5 % (42.0-75.0); Hemoglobin 13.3 g/dL (14.0-18.0); Mean Platelet Volume 7.3 fL (7.4-10.4); Platelet Count 193 thou/uL (130-400); RBC Distribution Width 12.5 % (11.5-14.5); Red Blood Cell (RBC) Count 4.16 mill/uL (4.70-6.10); White Blood Cell (WBC) Count 5.9 thou/uL (4.8-10.8)
[2018-09-30 11:11] LABS: INR-International Normal Ratio 1.1; PTT 28.8 SEC (22.9-36.1); Prothrombin Time 13.9 SEC (12.0-14.7)
[2018-09-30 11:29] LABS: ALT (SGPT) 14 U/L (8-55); AST (SGOT) 16 U/L (5-34); Alkaline Phosphatase 58 U/L (40-150); Anion Gap 10 mmol/L (10-20); BUN (Urea Nitrogen) 15 mg/dL (8.4-25.7); Bilirubin, Total 1.3 mg/dL (0.2-1.2); Calc. Creatinine Clearance 0 mL/min (70-130); Calcium 8.8 mg/dL (7.8-10.44); Carbon Dioxide 31 mmol/L (23-31); Chloride 105 mmol/L (98-107); Estimated GFR-MDRD 74; Globulin 2.3 g/dL (2.4-3.5); Glucose 83 mg/dL (83-110); Protein, Total 6.3 g/dL (5.8-8.1); Sodium 143 mmol/L (136-145)
[2018-09-30 11:35] LABS: Potassium 2.8 mmol/L (3.5-5.1)
== END 2018-09-30 09:58 | disposition home or self-care (01) ==
LOC: LABBT 09:57
PROVIDERS: ATTEND Internal Medicine Cardiovascular Disease
DX: Z01.812 Encounter for preprocedural laboratory examination (principal); I25.10 Atherosclerotic heart disease of native coronary artery without angina pectoris
CPT/HCPCS: 80053; 85025; 85610; 85730

== ENCOUNTER → 2018-10-01 | Day surgery (SDC) | payer MEDICARE, BC ==
[2018-09-30 10:18] VITALS: BMI 20.9
[~2018-10-01] MED LIST: Diazepam 5 MG TAB ONE; Fentanyl 100 MCG/2 ML VIAL ONE; Iopamidol 370 76% 100 ML VIAL ONE; Lidocaine 1% (PF) 30 ML VIAL ONE; Midazolam HCl 2 mg/2 ml Vial ONE; hydrALAZINE 20 MG/ML VIAL ONE
[2018-10-01 07:21] LABS: Anion Gap 11 mmol/L (10-20); BUN (Urea Nitrogen) 12 mg/dL (8.4-25.7); Calc. Creatinine Clearance 70 mL/min (70-130); Calcium 8.7 mg/dL (7.8-10.44); Carbon Dioxide 27 mmol/L (23-31); Chloride 108 mmol/L (98-107); Estimated GFR-MDRD 83; Glucose 94 mg/dL (83-110); Sodium 143 mmol/L (136-145)
[2018-10-01 08:09] LABS: Potassium 2.9 mmol/L (3.5-5.1)
== END ==
LOC: CCL 06:17
PROVIDERS: ATTEND Internal Medicine Cardiovascular Disease
PROC: B2151ZZ Fluoroscopy of Left Heart using Low Osmolar Contrast (ICD-10-PCS; principal; 2018-10-01)
PROC: B2111ZZ Fluoroscopy of Multiple Coronary Arteries using Low Osmolar Contrast (ICD-10-PCS; 2018-10-01)
PROC: B2131ZZ Fluoroscopy of Multiple Coronary Artery Bypass Grafts using Low Osmolar Contrast (ICD-10-PCS; 2018-10-01)
PROC: B2181ZZ Fluoroscopy of Left Internal Mammary Bypass Graft using Low Osmolar Contrast (ICD-10-PCS; 2018-10-01)
PROC: 4A023N7 Measurement of Cardiac Sampling and Pressure, Left Heart, Percutaneous Approach (ICD-10-PCS; 2018-10-01)
DX: I25.110 Atherosclerotic heart disease of native coronary artery with unstable angina pectoris (principal); I25.82 Chronic total occlusion of coronary artery; T82.898A Other specified complication of vascular prosthetic devices, implants and grafts, initial encounter; E78.00 Pure hypercholesterolemia, unspecified; I10 Essential (primary) hypertension; I49.1 Atrial premature depolarization; I47.1 Supraventricular tachycardia; Z79.02 Long term (current) use of antithrombotics/antiplatelets; Z87.891 Personal history of nicotine dependence; Z79.52 Long term (current) use of systemic steroids; Z79.82 Long term (current) use of aspirin; Z88.8 Allergy status to other drugs, medicaments and biological substances; Z79.899 Other long term (current) drug therapy; Z95.1 Presence of aortocoronary bypass graft
CPT/HCPCS: 36415; 76942; 80048; 93459; 99152; 99153; C1769; J0360; J1644; J2001; J2250; J3010

== ENCOUNTER 2022-11-26 05:38 | Day surgery (SDC) | payer MEDICARE, BC ==
[2022-11-23 09:24] VITALS: BMI 21.8
[2022-11-26] MEDS ORDERED: Lidocaine 1% (PF) 30 ML VIAL ONE (06:22)
[2022-11-26] MEDS ORDERED: Heparin 10,000 UNITS/ 10 ML VIAL ONE (06:22)
[2022-11-26] MEDS ORDERED: Nitroglycerin 100MG/250ML BOT 0 ML ONE (06:22)
[2022-11-26] MEDS ORDERED: FENTANYL 50 MCG/ML 1 ML VIAL ONE (06:30)
[2022-11-26] MEDS ORDERED: Midazolam HCl 2 mg/2 ml Vial ONE (06:30)
[2022-11-26 07:05] LABS: #Basophils 0.1 thou/uL (0.0-0.2); #Eosinphils 0.2 thou/uL (0.0-0.7); #Lymphocytes 1.9 thou/uL (1.20-3.40); #Monocytes 0.7 thou/uL (0.11-0.59); #Neutrophils 3.9 thou/uL (1.40-6.50); %Basophils 0.8 % (0.0-1.0); %Eosinophils 3.3 % (0.0-10.0); %Lymphocytes 28.7 % (21.0-51.0); %Neutrophils 57.2 % (42.0-75.0); Mean Corpuscular HGB CONC 33.3 g/dL (32.0-36.0); Mean Corpuscular Hemoglobin 33.2 pg (27.0-31.0); Mean Corpuscular Volume 99.6 fl (78.0-98.0); Mean Platelet Volume 7.6 fL (7.4-10.4); Platelet Count 220 10x3/uL (130-400); RBC Distribution Width 12.2 % (11.5-14.5); Red Blood Cell (RBC) Count 4.21 mill/uL (4.70-6.10); White Blood Cell (WBC) Count 6.7 10x3/uL (4.8-10.8)
[2022-11-26 07:28] LABS: ALT (SGPT) 10 U/L (8-55); AST (SGOT) 22 U/L (5-34); Albumin 4.3 g/dL (3.4-4.8); Alkaline Phosphatase 51 U/L (40-110); Anion Gap 14 mmol/L (10-20); BUN (Urea Nitrogen) 14 mg/dL (8.4-25.7); Bilirubin, Total 1.6 mg/dL (0.2-1.2); Calc. Creatinine Clearance 36 mL/min (70-130); Calcium 9.5 mg/dL (7.8-10.44); Carbon Dioxide 22 mmol/L (23-31); Cardiac Risk 2.2 (Less than 4.5); Chloride 108 mmol/L (98-107); Cholesterol 106 mg/dl (< 200 Desired); Estimated GFR 41; Globulin 2.6 g/dL (2.4-3.5); Glucose 103 mg/dL (83-110); HDL Cholesterol 48 mg/dL (>60 Neg Risk); LDL Cholesterol, Calculated 34 mg/dL; Protein, Total 6.9 g/dL (5.8-8.1); Sodium 140 mmol/L (136-145); Triglycerides 121 mg/dL (Less than 150)
== END 2022-11-26 13:36 | disposition home or self-care (01) ==
LOC: CCL 05:38
PROVIDERS: ATTEND Internal Medicine Cardiovascular Disease
PROC: 4A023N7 Measurement of Cardiac Sampling and Pressure, Left Heart, Percutaneous Approach (ICD-10-PCS; principal; 2022-11-26)
PROC: B2111ZZ Fluoroscopy of Multiple Coronary Arteries using Low Osmolar Contrast (ICD-10-PCS; 2022-11-26)
PROC: B2131ZZ Fluoroscopy of Multiple Coronary Artery Bypass Grafts using Low Osmolar Contrast (ICD-10-PCS; 2022-11-26)
PROC: B2181ZZ Fluoroscopy of Left Internal Mammary Bypass Graft using Low Osmolar Contrast (ICD-10-PCS; 2022-11-26)
DX: I25.10 Atherosclerotic heart disease of native coronary artery without angina pectoris (principal); I25.82 Chronic total occlusion of coronary artery; E78.00 Pure hypercholesterolemia, unspecified; I11.0 Hypertensive heart disease with heart failure; I50.22 Chronic systolic (congestive) heart failure; I49.3 Ventricular premature depolarization; I49.1 Atrial premature depolarization; K21.9 Gastro-esophageal reflux disease without esophagitis; E61.1 Iron deficiency; Z79.620 Long term (current) use of immunosuppressive biologic; Z79.82 Long term (current) use of aspirin; Z79.890 Hormone replacement therapy; Z79.899 Other long term (current) drug therapy; Z88.8 Allergy status to other drugs, medicaments and biological substances; Z95.1 Presence of aortocoronary bypass graft; Z95.5 Presence of coronary angioplasty implant and graft
CPT/HCPCS: 36415; 80053; 80061; 85025; 93459; 99152; 99153; C1769; J1644; J2001; J2250; J3010

== ENCOUNTER 2022-12-21 14:38 | Outpatient (CLI) | payer MEDICARE, BC ==
[2022-12-21 16:32] LABS: #Basophils 0.1 10x3/uL (0.0-0.2); #Eosinphils 0.2 10x3/uL (0.0-0.5); #Monocytes 0.6 10x3/uL (0.0-1.1); #Neutrophils 3.4 10x3/uL (1.5-8.4); %Eosinophils 3.5 % (0.0-6.0); %Lymphocytes 30.5 % (18.0-47.0); %Monocytes 9.4 % (0.0-10.0); %Neutrophils 55.3 % (40.0-75.0); Hemoglobin 12.9 g/dL (13.5-17.5); Mean Corpuscular HGB CONC 33.4 g/dL (32.0-36.0); Mean Corpuscular Hemoglobin 32.5 pg (27.0-33.0); Mean Corpuscular Volume 97.2 fl (81.2-95.1); Mean Platelet Volume 10.4 fl (7.4-10.4); Platelet Count 211 10x3/uL (150-450); RBC Distribution Width 13.3 % (11.5-14.5); Red Blood Cell (RBC) Count 3.97 10x6/uL (4.32-5.72); White Blood Cell (WBC) Count 6.1 10x3/uL (3.5-10.5)
[2022-12-21 16:51] LABS: ALT (SGPT) 11 U/L (8-55); AST (SGOT) 16 U/L (5-34); Albumin 4.1 g/dL (3.4-4.8); Alkaline Phosphatase 45 U/L (40-110); Anion Gap 14 mmol/L (10-20); BUN (Urea Nitrogen) 16 mg/dL (8.4-25.7); Bilirubin, Total 0.8 mg/dL (0.2-1.2); Calc. Creatinine Clearance 0 mL/min (70-130); Carbon Dioxide 21 mmol/L (23-31); Chloride 108 mmol/L (98-107); Estimated GFR 49; Globulin 2.2 g/dL (2.4-3.5); Glucose 108 mg/dL (83-110); Potassium 4.1 mmol/L (3.5-5.1); Protein, Total 6.3 g/dL (5.8-8.1); Sodium 139 mmol/L (136-145)
== END 2022-12-21 14:39 | disposition home or self-care (01) ==
LOC: LABBT 14:38
PROVIDERS: ATTEND Internal Medicine Cardiovascular Disease
DX: Z01.812 Encounter for preprocedural laboratory examination (principal); I25.10 Atherosclerotic heart disease of native coronary artery without angina pectoris
CPT/HCPCS: 80053; 85025

== ENCOUNTER 2022-12-25 05:41 | Day surgery (SDC) | payer MEDICARE, BC ==
[2022-12-24 09:37] VITALS: BMI 22.3
[2022-12-25] MEDS ORDERED: FENTANYL 50 MCG/ML 1 ML VIAL ONE (08:03)
[2022-12-25] MEDS ORDERED: Midazolam HCl 2 mg/2 ml Vial ONE (08:03)
[2022-12-25] MEDS ORDERED: Heparin 10,000 UNITS/ 10 ML VIAL ONE ×2 (08:15→09:32)
[2022-12-25] MEDS ORDERED: Iopamidol 370 76% 100 ML VIAL ONE (14:51)
== END 2022-12-25 19:25 | disposition home or self-care (01) ==
LOC: CCL 05:41
PROVIDERS: ATTEND Internal Medicine Cardiovascular Disease
PROC: 027035Z Dilation of Coronary Artery, One Artery with Two Drug-eluting Intraluminal Devices, Percutaneous Approach (ICD-10-PCS; principal; 2022-12-25)
PROC: 4A023N6 Measurement of Cardiac Sampling and Pressure, Right Heart, Percutaneous Approach (ICD-10-PCS; 2022-12-25)
PROC: B2111ZZ Fluoroscopy of Multiple Coronary Arteries using Low Osmolar Contrast (ICD-10-PCS; 2022-12-25)
DX: T82.898A Other specified complication of vascular prosthetic devices, implants and grafts, initial encounter (principal); I49.3 Ventricular premature depolarization; E78.00 Pure hypercholesterolemia, unspecified; I25.10 Atherosclerotic heart disease of native coronary artery without angina pectoris; I11.0 Hypertensive heart disease with heart failure; I50.22 Chronic systolic (congestive) heart failure; Z79.620 Long term (current) use of immunosuppressive biologic; Z79.82 Long term (current) use of aspirin; Z79.890 Hormone replacement therapy; Z79.899 Other long term (current) drug therapy; Z88.8 Allergy status to other drugs, medicaments and biological substances; Z95.5 Presence of coronary angioplasty implant and graft; Y71.3 Surgical instruments, materials and cardiovascular devices (including sutures) associated with adverse incidents
CPT/HCPCS: 85347; 92937; 93005; 99152; 99153; C1769; C1874; C1894; C9604; J1644; J2250; J3010